=== PATIENT | male | born 1935 | race Caucasian/White ===

== ENCOUNTER → 2017-11-28 | Outpatient (CLI) | payer MEDICARE, OTHER ==
[2017-11-28 14:42] LABS: ABSOLUTE EOSINOPHILS # (AUTO) 0.1 10^3/uL (0.0-0.6); ABSOLUTE LYMPHOCYTES (AUTO) 1.4 10^3/uL (0.5-4.7); ABSOLUTE MONOCYTES (AUTO) 0.4 10^3/uL (0.1-1.4); BASOPHILS % (AUTO) 0.3 % (0-2); EOSINOPHILS % (AUTO) 2.1 % (0-6); HEMATOCRIT 45.1 % (37.9-51.0); HEMOGLOBIN 14.9 g/dL (13.5-17.0); LYMPHOCYTES % (AUTO) 20.7 % (13-45); MEAN CORPUSCULAR HEMOGLOBIN 30.4 pg (27.0-33.4); MEAN CORPUSCULAR HGB CONC 32.9 g/dL (32.0-36.0); MEAN CORPUSCULAR VOLUME 92 fl (80-97); MONOCYTES % (AUTO) 5.3 % (3-13); PLATELET COUNT 201 10^3/uL (150-450); RED BLOOD COUNT 4.89 10^6/uL (4.35-5.55); SEGMENTED NEUTROPHILS % (AUTO) 71.6 % (42-78); TOTAL CELLS COUNTED % (AUTO) 100 %
[2017-11-28 15:05] LABS: ANION GAP 13 (5-19); BLOOD UREA NITROGEN 20 mg/dL (7-20); CALCIUM 9.8 mg/dL (8.4-10.2); CARBON DIOXIDE 32 mmol/L (22-30); CHLORIDE 99 mmol/L (98-107); GLUCOSE 170 mg/dL (75-110); POTASSIUM 4.1 mmol/L (3.6-5.0); SODIUM 143.9 mmol/L (137-145)
--- NOTE | 2017-11-28 16:20 | RADIOLOGY REPORT (SQ) ---
EXAM DESCRIPTION: CHEST PA/LATERAL COMPLETED DATE/TIME: 11/28/2017 2:51 pm REASON FOR STUDY: COUGH COMPARISON: None. EXAM PARAMETERS: NUMBER OF VIEWS: two views TECHNIQUE: Digital Frontal and Lateral radiographic views of the chest acquired. RADIATION DOSE: NA LIMITATIONS: none FINDINGS: LUNGS AND PLEURA: No opacities, masses or pneumothorax. No pleural effusion. MEDIASTINUM AND HILAR STRUCTURES: No masses or contour abnormalities. HEART AND VASCULAR STRUCTURES: Heart normal size. No evidence for failure. BONES: No acute findings. HARDWARE: None in the chest. OTHER: No other significant finding. IMPRESSION: NO SIGNIFICANT RADIOGRAPHIC FINDING IN THE CHEST. TECHNICAL DOCUMENTATION: JOB ID: [id number] [employer]- All Rights Reserved Reading location - IP/workstation name: [email or web address]
== END ==
LOC: OD 14:05
PROVIDERS: ATTEND Physician Assistant
DX: R05 Cough (principal)
CPT/HCPCS: 36415; 71046; 80048; 85025